=== PATIENT | female | born 1980 | race Two or more races ===

== ENCOUNTER 2020-07-27 12:45 | Observation (INO) | payer MEDICAID ==
[~2020-07-27] VITALS: Ht 154.9 cm; Wt 62.6 kg
[2020-08-06] MEDS ORDERED: PREN1TAB78 PO (21:15)
[2020-08-06] MEDS ORDERED: LEVO100T PO (21:15)
[2020-08-06] MEDS ORDERED: FERR325T6 PO (21:15)
== END 2020-07-27 17:10 | disposition home or self-care (01) ==
LOC: 8 EST LDRP 12:45
PROVIDERS: ADMIT Obstetrics & Gynecology; ATTEND Obstetrics & Gynecology
DX: O36.8130 Decreased fetal movements, third trimester, not applicable or unspecified (principal); Z3A.36 36 weeks gestation of pregnancy
CPT/HCPCS: 59025; 76805; 76818; G0378; 99281